=== PATIENT | female | born 1970 | race Hispanic/Latino ===

== ENCOUNTER → 2018-06-10 | Day surgery (SDC) | payer OTHER ==
[~2018-06-10] MED LIST: ATORVASTATIN CA10 MG PO; FENTANYL CITRATE/PF 100MCG/2 ML INJ ONE; GLIMEPIRIDE2 MG PO; GLYXAMBI PO; HYOSCYAMINE SULFATE 0.5 MG/ML INJ ONE; LIDOCAINE HCL 2% LOCAL INJ 5 ML SDV VIAL INJ ONE; METFORMIN HCL500 MG PO; MIDAZOLAM HCL 2 MG/2 ML VIAL ONE; OMEPRAZOLE40 MG PO; PROPOFOL IV EMULSION 10 MG/ML 50 ML VIAL ONE
--- NOTE | 2018-06-10 13:52 | Operative Report ---
DATE OF PROCEDURE: 06/10/2018 SURGEON: Flaco Fam MD PROCEDURE: EGD with biopsies and colonoscopy with polypectomy. INDICATIONS FOR EGD: Heartburn, indigestion, bloating. INDICATIONS FOR COLONOSCOPY: Colorectal cancer screening. MEDICATIONS: The patient was done under MAC. Please see anesthesiologist's note. PROCEDURE IN DETAIL: With the patient in left lateral decubitus position, the flexible fiberoptic Olympus gastroscope was introduced into the esophagus under direct visualization without any difficulty. There was some patchy erythema noted in distal esophagus. A minute tongue of velvety red mucosa was noted to extend proximally from the GE junction. Biopsies were obtained to rule out Manley's. The scope was then advanced with ease into the stomach. Mucosa overlying the antrum and the body revealed some diffuse erythema and moderate edema, and biopsies were obtained and sent to stain for H pylori. Prominent nodularity was noted in the mucosa overlying the upper body anterior wall and biopsies were obtained. The pylorus was of normal contour and shape, was intubated with ease and the scope was advanced all the way to the second portion of the duodenum. Biopsies were obtained to rule out sprue. The scope was then withdrawn back into the stomach and retroflexed. The mucosa overlying the fundus and cardia appeared to be within normal limits. The scope was then straightened out, it was subsequently withdrawn. The patient tolerated the procedure well. IMPRESSION: 1. Distal esophagitis, mild. 2. Rule out Manley esophagus. 3. Gastritis, biopsied. Biopsies sent to stain for H pylori. 4. Prominent nodularity, upper body anterior wall, biopsied. 5. Rule out sprue. PLAN: Follow up histology. Initiate Protonix 40 mg one p.o. q.a.m. a.c. The patient was then turned around, and after adequate lubrication of the anal canal, a flexible fiberoptic Olympus colonoscope was inserted into the rectum with ease and advanced all the way to the cecum. Mucosa overlying the cecum appeared to be within normal limits. The scope was then withdrawn slowly. One polyp was snared from the ascending colon. One polyp was snared from the transverse colon and the polypectomy site was hemoclipped. The descending, sigmoid, and rectum appeared to be within normal limits. The scope was then retroflexed into the distal rectum and small internal hemorrhoids were noted, none of which was actively bleeding. The scope was then straightened out, it was subsequently withdrawn. The patient tolerated the procedure well. IMPRESSION: 1. Ascending colon polyp, snared. 2. A transverse colon polyp, snared and site hemoclipped. 3. Internal hemorrhoids, none actively bleeding. PLAN: Followup histology. Initiate high-fiber, low-fat diet. Initiate high-fiber supplement. The patient might benefit from a followup colonoscopy in 3 to 5 years. Flaco Fam MD [facility]/MODL /[id number] cc: Faviola Arcos MD
--- OUTSIDE RECORDS SUMMARY | 2018-06-12 12:44 | XMS REPORT | Summary of Care ---
Author Author REE ALTAMIRANO M.D. Organization Unknown Address Unknown Phone Unavailable Care Team Providers Care Signal Helper Name Role Phone REE ALTAMIRANO M.D. Unavailable Unavailable EVELIA COON NVREE Unavailable Unavailable Unavailable Unavailable Functional Status Name Dates Details Functional status health issues are not documented Status: Name Dates Details Cognitive status health issues are not documented Status: Problems Name Dates Details Encounter for routine gynecological examination (V72.31, Z01.419) Status: Active Adenomyosis (617.0, N80.0) Status: Active Screening for STDs (sexually transmitted diseases) (V74.5, Z11.3) Status: Active Visit for screening mammogram (V76.12, Z12.31) Status: Active Screening mammogram, encounter for (V76.12, Z12.31) Status: Active Medications Name Dates Details metFORMIN HCl - 1000 MG Oral Tablet * Start : 23-Sep-2017 Active Atorvastatin Calcium 10 MG Oral Tablet * Refills: 0 * Start : 23-Sep-2017 Active 90 Tablet Bottle Ferrocite 324 MG Oral Tablet * Refills: 0 * Start : 23-Sep-2017 Active medroxyPROGESTERone Acetate 150 MG/ML Intramuscular Suspension Prefilled Syringe inect 1 ml q 3 months * Quantity: 1 Refills: 2 REE ALTAMIRANO M.D. * Start : 11-Oct-2017 Active Milliliter Glimepiride 2 MG Oral Tablet * Refills: 0 * Start : 15-May-2018 Active Glyxambi 25-5 MG Oral Tablet * Refills: 0 * Start : 15-May-2018 Active Allergies and Adverse Reactions Name Dates Details Bactrim TABS (Allergy) Status: Active Past Medical History Name Dates Details History of abnormal uterine bleeding (V13.29, Z87.42) Status: Resolved History of abnormal uterine bleeding (V13.29, Z87.42) Status: Resolved History of dysmenorrhea (V13.29, Z87.42) Status: Resolved History of dysuria (V13.00, Z87.898) Status: Resolved History of Menorrhagia with regular cycle (626.2, N92.0) Status: Resolved History of vaginal pruritus (V13.29, Z87.42) Status: Resolved Procedures Procedure Dates Details [L] Hep B Surface Ag Date: 15-May-2018 [place] Breast mamm[place] screen bilateral [address]751 Date: 15-May-2018 Immunization Name Dates Details Immunizations not documented Social History Name Dates Details - Status: Name Dates Details Never smoker Vital Signs Date Test Result Details :48 Physical Findings 0 Status: Comments: PHQ-9 Adult Depression Screening :43 BP Systolic 124 mm[Hg] Status: Comments: Location: RUE; Position: Sitting BP Diastolic 82 mm[Hg] Status: Comments: Location: RUE; Position: Sitting Height 63 in Status: Weight 170 lb Status: Body Mass Index Calculated 30.11 kg/m2 Status: Body Surface Area Calculated 1.8 m2 Status: Temperature 98.9 f Status: Comments: Method: Oral Heart Rate 86 /min Status: Results Date Description Value Details : [L] HIV 1/O/2 Antigen/Antibody Fourth Generation Preliminary Test with [place] to Supplementary Testing HIV Screen 4th Generation wRfx Non Reactive Range: Non Reactive [QLH] HEPATITIS C ANTIBODY Hep C Virus Ab <0.1 {s/co_ratio} Range: 0.0-0.9 Comments: Negative: < 0.8 Indeterminate: 0.8 - 0.9 Positive: > 0.9 . The CDC recommends that a positive HCV antibody result be followed up with a HCV Nucleic Acid Amplification test (730228). : [QLH] RPR RPR Non Reactive Range: Non Reactive : [L] HBsAg Screen HBsAg Screen Negative Range: Negative :00 . Benny KANG Comments: Department of Pathology & Laboratory Medicine For: MS[facility] [id number] [place] [address] [id number] Phone: [phone] Email: [email or web address] [address] [email or web address] Prep EndocervicalCervical LMP: 04/27/2018 Clinical History: STD Routine GC/ChlamydiaHPV 16 & 18/45HPV Statement of Adequacy:Satisfactory for evaluation.Endocervical/transformation component present. Diagnosis:Negative for intraepithelial lesion or malignancy. Student: Darlene Escobar GC/ChlamydiaGC~NegativeChlamydia~Negative~Testing is performed using FDA-approved APTIMA COMBO 2 Assay on the Be[employer]Sync system(i.e., Hide Worker-mediated amplification of rRNA followed by target-speci fichybridization and dual kinetic fluorescence detection). This assay is designed for thedetection of Chlamydia trachomatis (CT) and Neisseria gonorrhoeae (GC) in femaleendocervical and vaginal, male urethral, and female and male urine specimens. CT/GCviability and/or infectivity can't be inferred from a positive test result since targetRNA may persist in the absence of infectious microorganisms. A negative test doesn'texclude the possibility of infection due to possible improper specimencollection/transport/handling (inadequate specimen collection), presence of inhibitor(s),concurrent antibiotic therapy, or presence of insufficient RNA for detection. The testresult must be interpreted in conjunction with other laboratory and clinical data. Theassay is not intended to replace cervical exams and endocervical specimens for diagnosisof female urogenital infections. The assay is not intended for the evaluation ofsuspected sexual abuse or for other medicao-legal indications. For those patients forwhom a false positive result may have adverse psycho-social impact, the CDC recommendsretesting. The assay has been validated by the [facility] Department of Pathology and Laboratory Medicine.Ebonie Watters MD, PhD HPVHigh Risk~NegativeTesting is performed using FDA-approved APTIMA HPV assay (i.e., Hide Worker- mediatedamplification of E6/E7 viral mRNA followed by hybridization protection assay). Thisassay is designed to detect the 14 high-risk types of human papillomavirus (HPV Types 16,18, 31, 33, 35, 39, 45, 51, 52, 56, 58, 59, 66 and 68) known to cause cervical cancer. The assay has been reported to detect more than 90% of CIN3+, an immediate precursor tocarcinoma in situ. A negative result does not exclude the possibility of cytologicabnormalities or of future or underlying CIN2, CIN3, or cancer. Personal lubricantscontaining polyquaternium 15 and antifungal medications containing tioconazole mayinterfere with the assay performance. In vitro transcripts from low-risk HPV , 67, 70 and 82 exhibited cross-reactivity with the assay. The test result must beinterpreted along with the patient's cytology history, other risk factors and otherpertinent laboratory data. The results of this test are not intended to substitute forregular cervical cytology screening. The assay performance has not been evaluated forHPV vaccinated individuals. The effects of other potential variables, such as vaginaldischarge, use of tampons, etc. and specimen collection variables have not beenevaluated.This assay has been validated by the [facility] Department of Pathology and Laboratory Medicine.Ebonie Watters MD, PhD The pap smear is a screening test used as an aid in detecting cervical cancer and itsprecursors. Published data indicates that pap smear testing is subject to false negativeand false positive results. For this reason, periodic repeat testing and follow up of anyunexplained clinical signs and symptoms is recommended.This slide was screened with the aid of the ThinPrep Imaging System. PAP REPORT Plan of Care Name Dates Details Planned Observations Planned Goals not documented Planned Encounters Appointment; CABLE INSPECTOR, NURSE On: 19-Jun-2018 9:30 Interventions Provided Labs/Procedures/Imaging* [L] Hep B Surface Ag; To Be Done: 15 May 2018 * [place] Breast mammogram screen bilateral 577[address]; To Be Done: 15 May 2018 * . [facility] - PAP; Done: 15 May 2018 * [L] HIV 1/O/2 Antigen/Antibody Fourth Generation Preliminary Test with [place] to Supplementary Testing; Done: 15 May 2018 * [QL] HEPATITIS C ANTIBODY; Done: 15 May 2018 * [QL] RPR; Done: 15 May 2018 Instructions* Patient Specific Education Given; Done: 15 May 2018 Plan* PAP * STD screening * Mammogram Instructions Name Dates Details Instructions not documented Encounters Appointment; REE ALTAMIRANO M.D. Encounter Diagnosis: Problem not documented On: 23-Sep-2017 9:15 Appointment; REE ALTAMIRANO M.D. Encounter Diagnosis: Problem not documented On: 11-Oct-2017 10:00 Appointment; REE ALTAMIRANO M.D. Encounter Diagnosis: Problem not documented On: 09-Jan-2018 10:15 Appointment; CABLE INSPECTOR, NURSE Encounter Diagnosis: Problem not documented On: 27-Mar-2018 9:30 Appointment; REE ALTAMIRANO M.D. Encounter Diagnosis: Problem not documented On: 15-May-2018 9:30
--- OUTSIDE RECORDS SUMMARY | 2018-06-12 12:44 | XMS REPORT ---
Author Author [facility] Address Unknown Phone Unavailable Care Team Providers Care Pulping Machine Operator Name Role Phone REVA LOVELACE PP Unavailable Problems This patient has no known problems. Allergies, Adverse Reactions, Alerts This patient has no known allergies or adverse reactions. Medications This patient has no known medications. Encounters Start Date/Time End Date/Time Encounter Type Admission Type Attending Clinicians Care Facility Care Department Encounter ID 2016-10-23 17:34:00 2016-10-23 17:34:00 Emergency E [facility] [id number]
== END | disposition home or self-care (01) ==
LOC: OR 07:28
PROVIDERS: ATTEND Internal Medicine Gastroenterology
DX: Z12.11 Encounter for screening for malignant neoplasm of colon (principal); D12.2 Benign neoplasm of ascending colon; K29.50 Unspecified chronic gastritis without bleeding; K31.89 Other diseases of stomach and duodenum; K20.9 Esophagitis, unspecified; K64.8 Other hemorrhoids; E11.9 Type 2 diabetes mellitus without complications; D64.9 Anemia, unspecified; Z88.1 Allergy status to other antibiotic agents; Z01.810 Encounter for preprocedural cardiovascular examination; Z79.84 Long term (current) use of oral hypoglycemic drugs
CPT/HCPCS: 36415; 43239; 45385; 81025; 82948; 93005; J1980; J2001; J2250; J2704; 45378; 45384